=== PATIENT | female | born 1990 | race Caucasian/White ===

== ENCOUNTER 2018-02-15 21:50 | Emergency (ER) | payer SELFPAY ==
[~2018-02-15] VITALS: Ht 165.1 cm; Wt 50.0 kg
[2018-02-15 22:36] LABS: HEMATOCRIT 36.1 % (37.0-47.0); HEMOGLOBIN 12.1 g/dl (12.0-16.0); IMMATURE GRANULOCYTES 0.2 % (0.0-5.0); MEAN CELL VOLUME 91.4 fL CALC (80.0-100.0); MEAN CORPUSCULAR HGB 30.6 pG CALC (26.0-32.0); MEAN CORPUSCULAR HGB CONC 33.5 g/L CALC (32.0-36.0); NEUT# 3.32 thou/uL (2.00-7.15); RED BLOOD COUNT 3.95 mill/uL (4.20-5.60); RED CELL DISTRI WIDTH 12.8 % (11.5-15.5)
[2018-02-15] MEDS ORDERED: BACTROBAN21 EX (23:19)
[2018-02-15] MEDS ORDERED: ACETAMINOPHEN500 M1 PO (23:19)
[2018-02-15] MEDS ORDERED: TRAMADOL HCL50 MG PO (23:20)
[2018-02-15 23:48] VITALS: BP 128/69
== END 2018-02-15 23:49 | disposition home or self-care (01) | DRG 594 ==
LOC: ED 21:50
PROVIDERS: Family Medicine
DX: L97.419 Non-pressure chronic ulcer of right heel and midfoot with unspecified severity (principal); F17.210 Nicotine dependence, cigarettes, uncomplicated